=== PATIENT | male | born 1985 | race Caucasian/White ===

== ENCOUNTER 2019-06-17 20:32 | Emergency (ER) | payer MEDICAID ==
[2019-06-17] MEDS ORDERED: Sodium Chloride 0.9% 10 ML Syringe FLUSH PRN (21:09)
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
[2019-06-17] MEDS ORDERED: Sodium Chloride 0.9% 1,000 ML IV SCH (21:15)
[2019-06-17] MEDS ORDERED: fentaNYL 100 MCG/2 ML SDV IVPUSH ONE (21:25)
[2019-06-17] MEDS ORDERED: Sodium Chloride 0.9% 10 ML Syringe FLUSH ONE (21:36)
[2019-06-17] MEDS ORDERED: Sodium Chloride 0.9% 75 ML IV SCH (21:45)
[2019-06-17] MEDS ORDERED: Iopamidol 612 MG/ML 100 ML Bottle IV SCH (21:45)
--- NOTE | 2019-06-17 23:35 | CRLCT ---
INDICATION: Chest trauma. TECHNIQUE: CT chest was acquired with IV contrast. 100 mL IV Isovue. COMPARISON: None FINDINGS: Cardiovascular structures: Heart size is normal, there is no pericardial effusion.. Thoracic aorta and main pulmonary artery are normal in caliber. Mediastinum and valarie: No mass or adenopathy. Lungs: There is a calcified granuloma in the left upper lobe. No suspicious pulmonary nodule or mass. No consolidation, contusion pleural effusion or pneumothorax. Chest wall and axilla: No mass or adenopathy. Mild bilateral gynecomastia. Bones: No thoracic spine or rib fracture. No suspicious bone lesion. Upper abdomen: Unremarkable. IMPRESSION: Unremarkable chest CT. Please note that all CT scans at this facility use dose modulation, iterative reconstruction, and/or weight-based dosing when appropriate to reduce radiation dose to as low as reasonably achievable. Dictated by Magdalena Davies MD @ Jun 17 2019 11:25PM Signed by Dr. Magdalena Davies @ Jun 17 2019 11:33PM
== END 2019-06-17 23:55 | disposition home or self-care (01) ==
LOC: JP.ED 20:32
DX: S20.212A Contusion of left front wall of thorax, initial encounter (principal); F17.210 Nicotine dependence, cigarettes, uncomplicated; V86.52XA Driver of snowmobile injured in nontraffic accident, initial encounter
CPT/HCPCS: 36415; 71260; 80048; 99285; J7050; Q9967